=== PATIENT | female | born 1990 | race Caucasian/White ===

== ENCOUNTER 2021-09-08 22:23 | Emergency (ER) | payer OTHER ==
[~2021-09-08] VITALS: Ht 170.2 cm; Wt 65.8 kg
[2021-09-08 22:42] VITALS: BP 111/67
[2021-09-08] MEDS ORDERED: NACL 0.9% 1,000 ML IV ONE (23:10)
[2021-09-08] MEDS ORDERED: KETOROLAC 30 MG/ML VIAL IVP ONE (23:10)
[2021-09-08 23:32] LABS: APPEARANCE,URINE CLEAR (CLEAR); BASOPHILS % (AUTO) 0.4 % (0.0-2.0); BILIRUBIN,URINE 1+ (NEGATIVE); BLOOD, URINE NEGATIVE (NEGATIVE); COLOR,URINE ORANGE (YELLOW); EOSINOPHILS # (AUTO) 0.1 K/uL (0-0.4); EOSINOPHILS % (AUTO) 1.4 % (0.0-4.0); HEMATOCRIT 36.2 % (36-48); HEMOGLOBIN 12.2 g/dL (12.0-16.0); LEUKOCYTE ESTERASE ,URINE TRACE (NEGATIVE); LYMPHOCYTES # (AUTO) 2.3 K/uL (2.5-16.5); LYMPHOCYTES % (AUTO) 30.3 % (20.5-51.1); MEAN CORPUSCULAR HEMOGLOBIN 31 pg (27-31); MEAN CORPUSCULAR HGB CONC 34 g/dL (33-37); MONOCYTES # (AUTO) 0.5 K/uL (0.8-1.0); MONOCYTES % (AUTO) 6.3 % (1.7-9.3); NEUTROPHILS # (AUTO) 4.6 K/uL (1.8-7.7); NEUTROPHILS % (AUTO) 61.6 % (42.2-75.2); NITRITE, URINE POSITIVE (NEGATIVE); PH,URINE 6.5 (5.0-9.0); PLATELET COUNT (AUTO) 231 K/uL (140-450); RED CELL DISTRIBUTION WIDTH 12.7 % (11.6-13.7); UGLUCOSE 1+ (NEGATIVE); WHITE BLOOD COUNT (AUTO) 7.5 K/uL (4.8-10.8)
[2021-09-08 23:57] LABS: ALBUMIN 3.9 g/dL (3.4-5.0); ANION GAP 11.4 (8-16); CARBON DIOXIDE 27.7 mmol/L (21-32); CREATININE 0.9 mg/dL (0.6-1.3); POTASSIUM 4.1 mmol/L (3.5-5.1); RBC,URINE 0-5 /HPF (0-5); TOTAL BILIRUBIN 0.2 mg/dL (0.0-1.0); WBC,URINE 0-5 /HPF (0-5)
[2021-09-09] MEDS ORDERED: ACET-8386 PO (01:20)
[2021-09-09] MEDS ORDERED: MORPHINE SULFATE 4 MG/ML SYR IVP ONE (01:20)
[2021-09-09] MEDS ORDERED: LEVOFLOXACIN 500 MG/D5W PREMIX 100 ML IV ONE (01:20)
[2021-09-09] MEDS ORDERED: CIPR500T4 PO (01:20)
[2021-09-09] MEDS ORDERED: PHEN-1877 PO (01:21)
[2021-09-09 02:50] VITALS: BP 96/58
== END 2021-09-09 02:50 | disposition home or self-care (01) ==
LOC: MED 22:23
DX: N39.0 Urinary tract infection, site not specified (principal); Z98.890 Other specified postprocedural states; Z79.899 Other long term (current) drug therapy; Z79.891 Long term (current) use of opiate analgesic; Z79.2 Long term (current) use of antibiotics; Z88.1 Allergy status to other antibiotic agents
CPT/HCPCS: 36415; 80053; 81001; 81025; 83605; 83690; 85025; 87040; 87086; 96361; 96365; 96375; 99284; J1885; J1956; J2270; J7030